=== PATIENT | female | born 1990 | race African-American/Black ===

== ENCOUNTER 2025-04-23 21:03 | Emergency (ER) | payer MEDICAID ==
[~2025-04-23] VITALS: Ht 170.2 cm; Wt 95.0 kg
[2025-04-23 21:08] VITALS: O2SAT 98
[2025-04-23 21:53] LABS: BASOPHILS % 1.1 % (0.0-2.0); EOSINOPHILS % 0.7 % (0.0-5.0); HEMATOCRIT. 29.5 % (36.0-48.0); HEMOGLOBIN. 9.3 g/dL (12.0-16.0); LYMPHOCYTES % 34.2 % (20.0-50.0); MEAN PLATELET VOLUME 8.6 fl (7.4-10.4); MONOCYTES % 5.4 % (2.0-8.0); NEUTROPHILS % 58.6 % (40.0-76.0); PLATELET 339 x1000/uL (130-400); RED BLOOD CELL COUNT 4.74 mill/uL (4.2-5.4); RED CELL DISTRIBUTION WIDTH 18.5 % (11.6-14.6)
[2025-04-23 21:54] LABS: ADD RBC MORPHOLOGY YES
[2025-04-23 22:02] VITALS: TEMP 37.4
[2025-04-23 22:05] LABS: HCG SCREEN NEGATIVE
[2025-04-23 22:08] LABS: CREATININE 0.9 mg/dL (0.6-1.0); ETHANOL BLOOD < 10 mg/dL (<10); UREA NITROGEN BLOOD 5 mg/dL (9-23)
[2025-04-23 22:10] LABS: BILIRUBIN DIRECT 0.1 mg/dL (<=3.0); BILIRUBIN TOTAL 0.7 mg/dL (0.1-1.0); PROTEIN TOTAL 6.5 g/dL (6.0-8.3)
[2025-04-23 22:16] LABS: ASPARTATE AMINOTRANSFERASE < 8 IU/L (<34)
[2025-04-23 22:31] LABS: PLATELET ESTIMATE NORMAL
[2025-04-24] MEDS: ONDANSETRON HCL 4MG/2ML INJ IV ONE (00:01)
[2025-04-24] MEDS: SODIUM CHLORIDE 0.9% 1,000 ML IV ONE (00:01)
[2025-04-24] MEDS: MORPHINE SULFATE 4 MG/ML INJ (FOR IV/IM USE) IV ONE (00:01)
[2025-04-24] MEDS: PANTOPRAZOLE SODIUM 40 MG/VIAL IV ONE (00:01)
[2025-04-24 01:33] LABS: CLARITY URINE CLEAR (CLEAR); COLOR URINE YELLOW (YELLOW); GLUCOSE URINE NEGATIVE (NEGATIVE); KETONES URINE NEGATIVE (NEGATIVE); LEUKOCYTE ESTERASE URINE NEGATIVE (NEGATIVE); NITRITE URINE NEGATIVE (NEGATIVE); OCCULT BLOOD URINE NEGATIVE (NEGATIVE); PH URINE 6.0 (4.5-8.0); PROTEIN URINE NEGATIVE (NEGATIVE); SPECIFIC GRAVITY URINE 1.015 (1.005-1.030); UROBILINOGEN URINE 0.2 E.U./dL (0.2-1.0)
[2025-04-24 01:55] LABS: *AMPHETAMINES SCREEN URINE NEGATIVE (NEGATIVE)
[2025-04-24 01:56] LABS: *BARBITURATES SCREEN URINE NEGATIVE (NEGATIVE); *BENZODIAZEPINES SCREEN URINE NEGATIVE (NEGATIVE); *COCAINE SCREEN URINE NEGATIVE (NEGATIVE); CANNABINOID URINE SCREEN NEGATIVE (NEGATIVE); ECSTASY MDMA SCREEN URINE NEGATIVE (NEGATIVE); METHADONE URINE SCREEN NEGATIVE (NEGATIVE); OPIATES URINE SCREEN PRESUMPTIVE POSITIVE (NEGATIVE); PHENCYCLIDINE URINE SCREEN NEGATIVE (NEGATIVE)
[2025-04-24] MEDS ORDERED: FERR1TAB91 MT (02:00)
[2025-04-24 02:39] VITALS: BP 106/54; PULSE 99; RESP 32; O2SAT 99
== END 2025-04-24 02:44 | disposition home or self-care (01) ==
LOC: ER 21:03
DX: N83.202 Unspecified ovarian cyst, left side (principal); D64.9 Anemia, unspecified; E11.9 Type 2 diabetes mellitus without complications; Z79.84 Long term (current) use of oral hypoglycemic drugs; Z79.899 Other long term (current) drug therapy
CPT/HCPCS: 80076; 80048; 80320; 84703; 83690; 85025; 36415; 74176; 76830; 76856; 99285; 80305; 81003; 96361; 96374; 96375; J2405; J2470; J2270; J7030; G0480